=== PATIENT | male | born 1985 ===

== ENCOUNTER 2024-04-06 05:28 | Emergency (ER) | payer BC, OTHER ==
--- OUTSIDE RECORDS SUMMARY | 2024-04-06 05:32 | XMS REPORT | Continuity of Care Document ---
Author Name Unknown Address [address] [facility] [address] [place] [address] [facility] thconnect Address [address] [facility] 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 Role Phone Vishal Carpenter Attending Clinician Unavail able Lab, Adc Fam Pob I Attending Clinician Unavailab Twan Heart Attending Clinician [phone] TWAN MOSER Attending Clinician Unavailable Doctor Unassigned, [place] Attending Clinician SUSAN Barron Attending Clinician Unavailable Duran Chandler Admitting Clinician Unavailable Payers Payer Name Policy Type Policy Number Effective Date Expirati on Date Source Allergies, Adverse Reactions, Alerts Allergy Name Allergy Type Status Severity Reaction(s) Onset Date Inactive Date Treating Clinician Comments Source NO KNOWN ALLERGIE S Drug Class Active [facility] Social History Social Habit Start Date Stop Date Quantity Comments Source Exposure to SARS-CoV-2 (event) Not sure [facility] Sex Assigned At 1985 00:00:00 1985 00:00:00 [facility] Smoking Status Start Date Stop Date Source Unknown if ever smoked [facility] Procedures Procedure Date / Time Performed Performing Clinicia n Source ASSIGNMENT OF BENEFITS 2021-03-29 15:59:03 Docto r Unassigned, [place] [facility] Encounters Start Date/Time End Date/Time Encounter Type Admission Type Attending Clinicians Care Facility Care Department Encounter ID Source 2021-03-19 08:00:00 Inpatient Vishal Costello [facility] [id number] [facility] 2021-03-29 10:59:46 2021-03-29 11:19:46 Laboratory Only Lab, Adc Fam Pob I [facility] [id number] [facility] 2021-03-29 10:40:00 2021-03-29 10:40:00 Outpatient Nicho MOSER [facility] [id number] [facility] 2021-03-29 10:40:00 2021-03-29 10:40:00 Outpatient Nicho MOSER [facility] [id number] [facility] 2021-03-29 00:00:00 2021-03-29 00:00:00 Letter (Out) Doctor Unassigned, [place] [facility] [id number] [facility] 2021-03-29 00:00:00 2021-03-29 00:00:00 Letter (Out) Doctor Unassigned, [place] [facility] [id number] [facility] 2021-03-29 00:00:00 2021-03-29 00:00:00 Orders Only Doctor Unassigned, [place] [facility] [id number] [facility] 2020-12-02 13:25:00 2020-12-02 13:07:06 Outpatient SUSAN BENNETT [facility] [id number] [facility]
--- NOTE | 2024-04-06 07:29 | ER ---
Nurse's Notes [facility] Name: Shant Valencia Age: 38 yrs Sex: Male : 1985 Arrival Date: 04/06/2024 Time: 05:28 Bed 6 Private MD: Diagnosis: Cellulitis, sinusitis Presentation: 04/06 05:52 Chief complaint: Patient states: tenderness to the bridge of my nose about 2 days ago. kl Yesterday it started swelling. Coronavirus screen: At this time, the client does not indicate any symptoms associated with coronavirus-19. Ebola Screen: No symptoms or risks identified at this time. Initial Sepsis Screen: Does the patient meet any 2 criteria? No. Patient's initial sepsis screen is negative. Does the patient have a suspected source of infection? No. Patient's initial sepsis screen is negative. Risk Assessment: Do you want to hurt yourself or someone else? Patient reports no desire to harm self or others. Onset of symptoms was April 06, 2024. Transition of care: patient was not received from another setting of care. 05:52 Method Of Arrival: Ambulatory 05:52 Acuity: TAVARES 4 Triage Assessment: 05:53 Headache History: The patient has had previous headaches and this one is similar to previous episodes. General: Appears in no apparent distress. comfortable, Behavior is calm, cooperative, appropriate for age. Pain: Complains of pain in nose Pain does not radiate. Pain currently is 3 out of 10 on a pain scale. Quality of pain is described as throbbing, Pain began 2 hours ago. Neuro: Level of Consciousness is awake, alert, obeys commands, Oriented to person, place, time, situation. Respiratory: Airway is patent Respiratory effort is even, unlabored, Respiratory pattern is regular, symmetrical. 07:37 Pain: Also complains of no other associated symptoms. ap3 Historical: - Allergies: 05:53 No Known Allergies; kl - PMHx: 05:53 None; kl - PSHx: 05:53 None; kl - Immunization history:: Adult Immunizations up to date. - Infectious Disease History:: Denies. - Social history:: Smoking status: Patient denies any tobacco usage or history of. Screenin:36 [facility] ED Fall Risk Assessment (Adult) History of falling in the last 3 months, ap3 including since admission No falls in past 3 months (0 pts) Confusion or Disorientation No (0 pts) Intoxicated or Sedated No (0 pts) Impaired Gait No (0 pts) Mobility Assist Device Used No (0 pt) Altered Elimination No (0 pt) Score/Fall Risk Level 0 - 2 = Low Risk Oriented to surroundings, Maintained a safe environment, Educated pt \T\ family on fall prevention, incl call for assistance when getting out of bed, Assessed \T\ reinforced patient's understanding of fall precautions, Hourly rounding (assess needs \T\ fall precautionary measures) done, Used ambulatory aids as needed (educated on \T\ assisted with), Used gait belt as appropriate. Abuse screen: Denies threats or abuse. Nutritional screening: No deficits noted. Tuberculosis screening: No symptoms or risk factors identified. Assessment: 06:11 General: Appears in no apparent distress. Behavior is calm, cooperative. Pain: jm12 Complains of pain in face and nose. Neuro: No deficits noted. Cardiovascular: No deficits noted. Respiratory: No deficits noted. GI: No deficits noted. No signs and/or symptoms were reported involving the gastrointestinal system. : No deficits noted. No signs and/or symptoms were reported regarding the genitourinary system. EENT: Reports nasal congestion. Derm: No deficits noted. No signs and/or symptoms reported regarding the dermatologic system. Musculoskeletal: No deficits noted. No signs and/or symptoms reported regarding the musculoskeletal system. Vital Signs: 06:07 BP 123 / 51; Pulse 95; Resp 16; Temp 97.1(TE); Pulse Ox 99% on R/A; Weight 136.08 kg; jb4 Height 6 ft. 0 in. ; Pain 3/10; 06:07 Body Mass Index 40.69 (136.08 kg, 182.88 cm) jb4 06:07 Pain Scale: Adult jb4 ED Course: 05:34 Patient arrived in ED. gm2 05:53 Triage completed. kl 05:53 Arm band placed on. kl 07:10 Alf Lambert MD is Attending Physician. sp3 07:37 Patient has correct armband on for positive identification. Provided Education on: ap3 discharge instructions. 07:37 No provider procedures requiring assistance completed. Patient did not have IV access ap3 during this emergency room visit. Administered Medications: No medications were administered Medication: 07:37 VIS not applicable for this client. ap3 Outcome: 07:28 Discharge ordered by . sp3 07:37 Discharged to home ambulatory, ap3 07:37 Condition: good 07:37 Discharge instructions given to patient, Instructed on discharge instructions, follow up and referral plans. medication usage, Demonstrated understanding of instructions, follow-up care, medications, Prescriptions given X 2, 07:37 Patient left the ED. ap3 Signatures: Justina Hogan RN RN Osmel Hernandez RN RN jb4 Otilia Concepcion RN RN ap3 Alf Lambert MD MD sp3 Laura Joseph 2 Rima Curiel RN RN jm12
--- NOTE | 2024-04-06 07:29 | EDPHYS ---
Physician Documentation [facility] Name: Shant Valencia Age: 38 yrs Sex: Male : 1985 Arrival Date: 04/06/2024 Time: 05:28 Bed 6 Private MD: ED Physician Alf Lambert HPI: 04/06 07:20 This 38 yrs old Male presents to ER via Ambulatory with complaints of Sinus Pain, sp3 Drainage. 07:25 38-year-old male with no significant past medical history presents with sinus drainage sp3 and red skin on the bridge of his nose for approximately 2 days. Patient states he has been using increased amounts of Afrin no spray which she regularly uses. He denies any fever, dental pain, neck pain, shortness of breath, cough, congestion, headache, vomiting, diarrhea, body aches, rash, known sick contacts, travel history, or any other signs or symptoms on ROS at this time.. Historical: - Allergies: 05:53 No Known Allergies; kl - PMHx: 05:53 None; kl - PSHx: 05:53 None; kl - Immunization history:: Adult Immunizations up to date. - Infectious Disease History:: Denies. - Social history:: Smoking status: Patient denies any tobacco usage or history of. ROS: 07:25 Constitutional: Negative for fever, chills, and weight loss, Eyes: Negative for injury, sp3 pain, redness, and discharge, Neck: Negative for injury, pain, and swelling, Cardiovascular: Negative for chest pain, palpitations, and edema, Respiratory: Negative for shortness of breath, cough, wheezing, and pleuritic chest pain, Abdomen/GI: Negative for abdominal pain, nausea, vomiting, diarrhea, and constipation, Back: Negative for injury and pain, MS/Extremity: Negative for injury and deformity, Skin: Negative for injury, rash, and discoloration, Neuro: Negative for headache, weakness, numbness, tingling, and seizure, Psych: Negative for depression, anxiety, suicide ideation, homicidal ideation, and hallucinations, Allergy/Immunology: Negative for hives, rash, and allergies, Endocrine: Negative for neck swelling, polydipsia, polyuria, polyphagia, and marked weight changes, 07:25 All other systems are negative, Exam: 07:26 Constitutional: This is a well developed, well nourished patient who is awake, alert, sp3 and in no acute distress. Head/Face: Normocephalic, atraumatic. Eyes: Pupils equal round and reactive to light, extra-ocular motions intact. Lids and lashes normal. Conjunctiva and sclera are non-icteric and not injected. Cornea within normal limits. Periorbital areas with no swelling, redness, or edema. Neck: Trachea midline, no thyromegaly or masses palpated, and no cervical lymphadenopathy. Supple, full range of motion without nuchal rigidity, or vertebral point tenderness. No Meningismus. Chest/axilla: Normal chest wall appearance and motion. Nontender with no deformity. No lesions are appreciated. Cardiovascular: Regular rate and rhythm with a normal S1 and S2. No gallops, murmurs, or rubs. Normal PMI, no JVD. No pulse deficits. Respiratory: Lungs have equal breath sounds bilaterally, clear to auscultation and percussion. No rales, rhonchi or wheezes noted. No increased work of breathing, no retractions or nasal flaring. Abdomen/GI: Soft, non-tender, with normal bowel sounds. No distension or tympany. No guarding or rebound. No evidence of tenderness throughout. Back: No spinal tenderness. No costovertebral tenderness. Full range of motion. MS/ Extremity: Pulses equal, no cyanosis. Neurovascular intact. Full, normal range of motion. Neuro: Awake and alert, GCS 15, oriented to person, place, time, and situation. Cranial nerves II-XII grossly intact. Motor strength 5/5 in all extremities. Sensory grossly intact. Cerebellar exam normal. Normal gait. Psych: Awake, alert, with orientation to person, place and time. Behavior, mood, and affect are within normal limits. 07:26 ENT: I send or exam normal. Nasal exam demonstrates mild clear drainage and overlying erythema on the bridge and bilateral nasal folds. No vesicles, sloughing or other concerning findings.. Vital Signs: 06:07 BP 123 / 51; Pulse 95; Resp 16; Temp 97.1(TE); Pulse Ox 99% on R/A; Weight 136.08 kg; jb4 Height 6 ft. 0 in. ; Pain 3/10; 06:07 Body Mass Index 40.69 (136.08 kg, 182.88 cm) jb4 06:07 Pain Scale: Adult jb4 MDM: 07:10 Patient medically screened. sp3 07:26 Data reviewed: vital signs, nurses notes. ED course: Differential diagnosis includes sp3 upper respiratory infection, sinusitis, surface cellulitis, among others. Clinically I do not believe patient has meningitis, sepsis, shock, encephalitis, or any other concerning diagnoses. Clinically I believe patient has cellulitis which is confounded by him wearing glasses causing constant friction. Will treat with Augmentin to cover both sinusitis and cellulitis as well as topical Bactroban. Follow-up with PCP as needed. Have advised him to wear contact lenses as opposed to his glasses. All questions been answered and patient will be safely discharged home at this time.. Administered Medications: No medications were administered Disposition Summary: 04/06/24 07:28 Discharge Ordered Notes: Location: Home sp3 Condition: Stable sp3 Diagnosis - Cellulitis, sinusitis sp3 Followup: sp3 - With: Private Physician - When: Upon discharge from the Emergency Department - Reason: If symptoms return, Continuance of care Discharge Instructions: - Discharge Summary Sheet sp3 - Cellulitis, Adult sp3 - Sinusitis, Adult sp3 Forms: - Medication Reconciliation Form sp3 - Antibiotic Education sp3 - Prescription Opioid Use sp3 - Patient Portal Instructions sp3 - Leadership Thank You Letter sp3 Prescriptions: - mupirocin calcium 2 % Topical cream - apply 1 application TOPICAL route 2 times per day; 1 Pack; Refills: 0, Product sp3 Selection Permitted - Augmentin 875-125 mg Oral Tablet - take 1 tablet ORAL route every 12 hours for 10 days; 20 tablet; Refills: 0, sp3 Product Selection Permitted Signatures: Justina Hogan, JUSTINA RN Alf Fofana MD MD sp3
[2024-04-06 07:41] VITALS: BP 123/51; TEMP 97.1; O2SAT 99
== END 2024-04-06 07:37 | disposition home or self-care (01) ==
LOC: ER 05:28
DX: J32.9 Chronic sinusitis, unspecified (principal); J34.0 Abscess, furuncle and carbuncle of nose